=== PATIENT | male | born 1980 ===

== ENCOUNTER 2016-12-20 08:36 | Outpatient (CLI) | payer BC, OTHER ==
[2016-12-20 12:39] LABS: Hemoglobin A1c 8.1 % (4.0-6.0)
[2016-12-20 13:00] LABS: Anion Gap 14 mmol/L (10-20); BUN (Urea Nitrogen) 13 mg/dL (8.9-20.6); Calc. Creatinine Clearance 0 mL/min (70-130); Calcium 9.3 mg/dL (7.8-10.44); Carbon Dioxide 25 mmol/L (22-29); Chloride 103 mmol/L (98-107); Estimated GFR-MDRD 83
== END 2016-12-20 08:37 ==
LOC: NAVSJIPCSP 08:36
PROVIDERS: ATTEND Family Medicine
DX: E10.9 Type 1 diabetes mellitus without complications (principal); Z79.899 Other long term (current) drug therapy
CPT/HCPCS: 36415; 80048; 83036